=== PATIENT | female | born 1965 | race Caucasian/White ===

== ENCOUNTER → 2021-05-14 | Outpatient (CLI) | payer OTHER ==
[~2021-05-14] MED LIST: DOCUSATE SODIU250 MG PO; FISH OIL PO; HYDROCODONE-AC1 EACH PO; IBUPROFEN600 MG PO; LORATADINE10 MG PO; OMEPRAZOLE20 MG PO; ROPINIROLE HC0.25 MG PO; SIMVASTATIN20 MG PO; VITAMIN D325 MCG PO
[2021-05-14 10:25] LABS: HEMOGLOBIN 14.4 gm/dl (12.3-15.3); RED BLOOD COUNT 4.98 M/UL (4.00-5.10); WHITE BLOOD COUNT 6.1 K/UL (4.5-11.0)
== END ==
LOC: OPSV2 09:30
PROVIDERS: Obstetrics & Gynecology
DX: Z01.812 Encounter for preprocedural laboratory examination (principal)
CPT/HCPCS: 36415; 81001; 85025

== ENCOUNTER → 2021-05-22 | Day surgery (SDC) | payer OTHER | END | disposition home or self-care (01) | LOC: OR 08:23 | DX: N95.0 Postmenopausal bleeding (principal); D25.9 Leiomyoma of uterus, unspecified; E78.5 Hyperlipidemia, unspecified; K21.9 Gastro-esophageal reflux disease without esophagitis; K76.0 Fatty (change of) liver, not elsewhere classified; M19.90 Unspecified osteoarthritis, unspecified site; G25.81 Restless legs syndrome; Z90.49 Acquired absence of other specified parts of digestive tract; Z79.899 Other long term (current) drug therapy; Z88.8 Allergy status to other drugs, medicaments and biological substances; Z80.9 Family history of malignant neoplasm, unspecified; Z98.51 Tubal ligation status | CPT/HCPCS: 71045; 93005; C1729; C1769; J0690; J1100; J1170; J1885; J2001; J2250; J2405; J2550; J2704; J2710; J3010; J7120 ==